=== PATIENT | male | born 1995 | race Caucasian/White ===

== ENCOUNTER 2020-09-12 03:40 | Emergency (ER) | payer OTHER ==
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
[2020-09-12] MEDS ORDERED: Albuterol/Ipratropium 3.0-0.5 MG/3 ML Neb Soln NEB ONE (04:18)
--- NOTE | 2020-09-12 04:50 | CRLCR ---
For Patients: As a result of the Cures Act, medical imaging exams and procedure reports are released immediately into your electronic medical record. You may view this report before your referring provider. If you have questions, please contact your health care provider. INDICATION: Cough dyspnea TECHNIQUE: Chest radiograph 2 views COMPARISON: None FINDINGS: Mediastinum: The mediastinum is normal in appearance. The heart silhouette is normal in size and morphology. Lung: Both lungs are unremarkable in appearance. No sign of pleural effusion seen. No pneumothorax is identified. Bone and Soft tissue: Unremarkable for age. IMPRESSION: 1. No acute cardiopulmonary disease is seen. Dictated by: Fred Whitlock MD @ 09/12/2020 04:49:33 (Electronically Signed)
== END 2020-09-12 05:03 | disposition home or self-care (01) ==
LOC: JP.ED 03:40
DX: J20.9 Acute bronchitis, unspecified (principal); J30.1 Allergic rhinitis due to pollen; J30.2 Other seasonal allergic rhinitis
CPT/HCPCS: 36415; 71046; 85025; 86140; 94640; 99285-25; J7620-GY